=== PATIENT | male | born 1990 | race Caucasian/White ===

== ENCOUNTER → 2016-08-16 | Outpatient (CLI) | payer OTHER | LOC: FIMAGING 15:42 | PROVIDERS: ATTEND Physician Assistant Medical | DX: J01.40 Acute pansinusitis, unspecified (principal); R22.0 Localized swelling, mass and lump, head; G43.109 Migraine with aura, not intractable, without status migrainosus ==

== ENCOUNTER 2016-12-04 09:48 | Emergency (ER) | payer OTHER ==
[2016-12-04 10:03] VITALS: RESP 16; TEMP 98.2
--- NOTE | 2016-12-04 10:22 | EDPHY ---
H & P Stated Complaint: Dx'd with sinus inf,started antibx;migraine w/typical sxs Time Seen by Provider: 12/04/16 10:10 HPI/ROS: CHIEF COMPLAINT: Right retro-orbital eye pain, facial numbness, sporadic right arm and leg numbness HISTORY OF PRESENT ILLNESS: The patient has a history of migraine headaches and is chronically on diltiazem. He presents to the ED with a 5 day history of a right retro-orbital eye pain and associated right facial numbness and intermittent right arm and leg numbness. The patient states these are atypical symptoms for his migraine headaches. The patient saw his primary care provider and was started on antibiotics for possible sinusitis. The patient has had no symptoms of rhinorrhea, congestion, cough or fever. The patient denies any complaints of acute neck pain. He denies history of fall or trauma. He denies history of cervical manipulation. The patient currently complains of decreased sensation to light touch along the right aspect of his face primarily below his right eye and along his nose. REVIEW OF SYSTEMS: A comprehensive 10 point review of systems is otherwise negative aside from elements mentioned in the history of present illness. Source: Patient Exam Limitations: No limitations - Personal History Current Tetanus Diphtheria and Acellular Pertussis (TDAP): Yes - Medical/Surgical History Hx Asthma: Yes Other PMH: migraines - Social History Smoking Status: Never smoked - Physical Exam Exam: General Appearance: Alert, no distress Eyes: Pupils equal and round no pallor or injection ENT, Mouth: Mucous membranes moist Respiratory: There are no retractions, lungs are clear to auscultation Cardiovascular: Regular rate and rhythm Gastrointestinal: Abdomen is soft and nontender, no masses, bowel sounds normal Neurological: Alert and oriented x4, 5/5 strength all 4 extremities, cranial nerves 2-12 intact, decreased sensation to light touch along the right face lateral to the nose and below the eye Skin: Warm and dry, no rashes Musculoskeletal: Neck is supple nontender Extremities: symmetrical, full range of motion Psychiatric: Patient is oriented X 3, there is no agitation Constitutional: Initial Vital Signs Temperature (C) 36.8 C 12/04/16 10:00 Heart Rate 75 12/04/16 10:00 Respiratory Rate 16 12/04/16 10:00 Blood Pressure 151/91 H 12/04/16 10:00 O2 Sat (%) 98 12/04/16 10:00 O2 Delivery Mode Room Air Allergies/Adverse Reactions: No Known Allergies Allergy (Unverified 12/04/16 09:59) Home Medications: Medication Instructions Recorded Amox Tr/K Clav (Augmentin) 1 each PO 12/04/16 [Augmentin 250/125 MG TAB (*)] Fluticasone/Salmeter 100/50Mcg 60 puffs IH 12/04/16 [Advair 100/50 (*)] Verapamil ER [Calan SR/ER 120MG 120 mg PO 12/04/16 (*)] Medical Decision Making - Diagnostics Imaging Results: Imaging Impressions Head CTA 12/04/16 10:55 Impression: 1. No acute vascular findings. 2. Extensive sinus disease with a polypoid mass in the right maxillary sinus, similar to the comparison MR brain, which could represent neoplasm, papilloma, polyposis, or other etiology. Consider ENT consultation. 3. 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 Stenoses are calculated using [place] Symptomatic Carotid Endarterectomy Trial (NASCET) criteria. Findings discussed with Dr. Bhupinder Burgos on December 04, 2016 at 1213 hours. Neck CTA 12/04/16 10:55 Impression: 1. No acute vascular findings. 2. Extensive sinus disease with a polypoid mass in the right maxillary sinus, similar to the comparison MR brain, which could represent neoplasm, papilloma, polyposis, or other etiology. Consider ENT consultation. 3. 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 Stenoses are calculated using [place] Symptomatic Carotid Endarterectomy Trial (NASCET) criteria. Findings discussed with Dr. Bhupinder Burgos on December 04, 2016 at 1213 hours. Brain MRI 12/04/16 10:56 Impression: 1. 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 Mass has slightly increased in size since July 2016. Recommend ENT consult. 2. No acute infarct, acute hemorrhage, hydrocephalus or mass effect. Findings and recommendations discussed with Emergency Department physician, Dr. Bhupinder Burgos at 1220 hours on December 04, 2016. Final report concurs with initial preliminary interpretation. ED Course/Re-evaluation: The patient presents to the ED with complaints of a right retro-orbital headache and associated neurologic symptoms. Given the patient's neurologic complaints with headache, I did order a CT and MRI for evaluation of a vascular injury, venous thrombosis or HIDE CURER tumor. Aside from slightly decreased sensation to light touch in the right side of his face the patient is otherwise neurologically intact. On MRI imaging of the brain the patient has evidence of fairly significant sinusitis with evidence of some compression involving the right orbit. CT angiogram of the head neck demonstrate no evidence of a vascular dissection or thrombosis. Consultation was made with our on-call ENT surgeon Dr. Tricia Diamond who reviewed the patient's MRI and CT scan. Per her request, the patient will be given 10 mg of Decadron given his extensive sinusitis. She will see him in the office tomorrow at 10 o'clock in the morning to discuss further evaluation and management. The patient has been instructed to continue Augmentin for a total of 14 days. I re-evaluated the patient at 1:30 p.m.. He continues to be neurologically intact. He has been informed of the plan to follow up tomorrow with Dr. Diamond from ENT. Differential Diagnosis: Differential diagnosis considered includes dissection, stroke, sinusitis, tumor , cavernous vein thrombosis - Data Points Laboratory Results: Laboratory Results 12/04/16 10:21 12/04/16 10:21 12/04/16 12/04/16 10:21 10:21 WBC 5.82 10^3/uL 10^3/uL (3.80-9.50) RBC 5.16 10^6/uL 10^6/uL (4.40-6.38) Hgb 16.4 g/dL g/dL (13.7-17.5) Hct 44.2 % % (40.0-51.0) MCV 85.7 fL fL (81.5-99.8) MCH 31.8 pg pg (27.9-34.1) MCHC 37.1 g/dL H g/dL (32.4-36.7) RDW 11.9 % % (11.5-15.2) Plt Count 206 10^3/uL 10^3/uL (150-400) MPV 8.6 fL L fL (8.7-11.7) Neut % (Auto) 56.6 % % (39.3-74.2) Lymph % (Auto) 29.6 % % (15.0-45.0) Hart % (Auto) 8.6 % % (4.5-13.0) Eos % (Auto) 4.3 % % (0.6-7.6) Baso % (Auto) 0.7 % % (0.3-1.7) Nucleat RBC Rel Count 0.0 % % (0.0-0.2) Absolute Neuts (auto) 3.30 10^3/uL 10^3/uL (1.70-6.50) Absolute Lymphs (auto) 1.72 10^3/uL 10^3/uL (1.00-3.00) Absolute Monos (auto) 0.50 10^3/uL 10^3/uL (0.30-0.80) Absolute Eos (auto) 0.25 10^3/uL 10^3/uL (0.03-0.40) Absolute Basos (auto) 0.04 10^3/uL 10^3/uL (0.02-0.10) Absolute Nucleated RBC 0.00 10^3/uL 10^3/uL (0-0.01) Immature Gran % 0.2 % % (0.0-1.1) Immature Gran # 0.01 10^3/uL 10^3/uL (0.00-0.10) Sodium 143 mEq/L mEq/L (134-144) Potassium 4.0 mEq/L mEq/L (3.5-5.2) Chloride 105 mEq/L mEq/L (97-110) Carbon Dioxide 22 mEq/l mEq/l (22-31) Anion Gap 16 mEq/L mEq/L (8-16) BUN 15 mg/dL mg/dL (7-23) Creatinine 1.1 mg/dL mg/dL (0.7-1.3) Estimated GFR > 60 Glucose 93 mg/dL mg/dL (70-100) Calcium 10.4 mg/dL mg/dL (8.5-10.4) Medications Given: Discontinued Medications Dexamethasone (Decadron Injection) 10 mg IVP EDNOW ONE Stop: 12/04/16 12:46 Last Admin: 12/04/16 13:21 Dose: 10 mg Departure - Departure Disposition: Home, Routine, Self-Care Clinical Impression: Chronic sinusitis of both maxillary sinuses, Facial paresthesia Condition: Good Instructions: Sinusitis (ED) Additional Instructions: 1. Please follow up tomorrow with our ENT physician on the 2nd floor of the hospital at 10:00 a.m.. 2. Return to the ED for fever, vision changes, worsening symptoms or other concerns. 3. Please take Augmentin for a total of 14 days. Referrals: Tricia Diamond MD [Medical Doctor] - As per Instructions
[2016-12-04 10:35] LABS: % IMMATURE GRANULYOCYTES 0.2 % (0.0-1.1); ABSOLUTE IMMATURE GRANULOCYTES 0.01 10^3/uL (0.00-0.10); ADD DIFF? NO; ADD MORPH? NO; ADD SCAN? NO; ATYPICAL LYMPHOCYTE FLAG 30 (0-99); FRAGMENT RBC FLAG 0 (0-99); HEMATOCRIT 44.2 % (40.0-51.0); HEMOGLOBIN 16.4 g/dL (13.7-17.5); LEFT SHIFT FLG 0 (0-99); LIPEMIA HEMOLYSIS FLAG 90 (0-99); MEAN CELL HEMOGLOBIN 31.8 pg (27.9-34.1); MEAN CELL HEMOGLOBIN CONCENTR. 37.1 g/dL (32.4-36.7); MEAN CELL VOLUME 85.7 fL (81.5-99.8); MEAN PLATELET VOLUME 8.6 fL (8.7-11.7); PLATELET CLUMPS FLAG 0 (0-99); PLATELET COUNT 206 10^3/uL (150-400); RED BLOOD CELL COUNT 5.16 10^6/uL (4.40-6.38); RED CELL DISTRIBUTION WIDTH 11.9 % (11.5-15.2)
[2016-12-04 10:50] LABS: ANION GAP 16 mEq/L (8-16); CALCIUM 10.4 mg/dL (8.5-10.4); CARBON DIOXIDE 22 mEq/l (22-31); CHLORIDE 105 mEq/L (97-110); CREATININE 1.1 mg/dL (0.7-1.3); GLOMERULAR FILTRATION RATE > 60; GLUCOSE 93 mg/dL (70-100); SODIUM 143 mEq/L (134-144)
[2016-12-04] MEDS ORDERED: IOPAMIDOL (ISOVUE 370) 100 ML BTL IV ONE (11:16)
[2016-12-04] MEDS ORDERED: DEXAMETHASONE 10 MG/ML VIAL IVP ONE (12:45)
[2016-12-04 13:24] VITALS: BP 119/88; PULSE 73; O2SAT 99
== END 2016-12-04 13:57 | disposition home or self-care (01) ==
DX: J32.9 Chronic sinusitis, unspecified (principal); R20.2 Paresthesia of skin; J45.909 Unspecified asthma, uncomplicated
CPT/HCPCS: 96374; J1100; Q9967